=== PATIENT | female | born 1950 | race Caucasian/White ===

== ENCOUNTER 2016-08-17 10:47 | Inpatient (IN) | payer OTHER ==
[2016-07-27 09:19] VITALS: BMI 40.0
--- NOTE | 2016-07-27 10:08 | PAT Medication Instructions ---
Service Date Jul 27, 2016. Current Home Medication List Albuterol Hfa (Ventolin Hfa), 1-2 PUFFS INH Q6H PRN for Shortness of Breath Fluticasone Prop/Salmeterol (Advair Diskus 100/50 60 Dose), 1 PUFF INH BID Gabapentin (Neurontin), 300 MG PO HS Medication Instructions For Your Scheduled Surgery - Take the following medications the morning of surgery with a sip of water: Fluticasone Prop/Salmeterol (Advair Diskus 100/50 60 Dose), 1 PUFF INH BID Albuterol Hfa (Ventolin Hfa), 1-2 PUFFS INH Q6H PRN for Shortness of Breath ( bring with you to hospital on day of surgery) - Take the following medications as scheduled the night before surgery: Gabapentin (Neurontin), 300 MG PO HS Fluticasone Prop/Salmeterol (Advair Diskus 100/50 60 Dose), 1 PUFF INH BID Albuterol Hfa (Ventolin Hfa), 1-2 PUFFS INH Q6H PRN for Shortness of Breath If you have any questions please call us at [phone] or [phone] ( Gabriela) or [phone]
--- NOTE | 2016-07-27 10:45 | DIAGNOSTIC IMAGING REPORT ---
CHEST PREADMISSION(PA/LAT) CLINICAL HISTORY: PAT preoperative evaluation COMPARISON STUDY: No previous studies for comparison. FINDINGS: Findings of prior median sternotomy. No evidence for cardiac enlargement. Lungs are clear. Diaphragms smooth. IMPRESSION: No acute process. Electronically signed by: Armen Ivey M.D. 07/27/2016 10:44 AM Dictated Date/Time: 07/27/2016 10:43 AM
[2016-07-27 11:29] LABS: BASO % 0.2 %; BASO ABS # 0.01 K/uL (0-0.2); COMPLETE YES; EOS % 0.2 %; HEMATOCRIT 44.3 % (37-47); IG% 0.2 %; LYMPH % 31.4 %; LYMPH ABS # 2.05 K/uL (1.2-3.4); MEAN CELL VOLUME 92.9 fL (80-100); MEAN CORPUSCULAR HEMOGLOBIN 30.6 pg (25-34); MEAN PLATELET VOLUME 10.2 fL (7.4-10.4); MONO % 6.6 %; NEUT % 61.4 %; PLATELET COUNT 195 K/uL (130-400); RED BLOOD COUNT 4.77 M/uL (4.2-5.4); WHITE BLOOD COUNT 6.52 K/uL (4.8-10.8)
[2016-07-27 11:31] LABS: URINE APPEARANCE CLEAR (CLEAR); URINE BILIRUBIN NEG (NEG); URINE COLOR YELLOW; URINE NITRITE NEG (NEG); URINE SPECIFIC GRAVITY 1.022 (1.000-1.030); UROBILINOGEN NEG (NEG)
[2016-07-27 11:35] LABS: MANUAL MICROSCOPIC REQUIRED? NO; REVIEW REQ? NO
[2016-07-27 11:53] LABS: BUN/CREATININE RATIO 15.5 (10-20); CALCIUM 9.4 mg/dl (8.5-10.1); CREATININE 0.85 mg/dl (0.60-1.20); POTASSIUM 3.9 mmol/L (3.5-5.1)
--- NOTE | 2016-08-13 08:00 | HISTORY & PHYSICAL EXAMINATION ---
DATE OF ADMISSION: 08/17/2016 HISTORY OF PRESENT ILLNESS: The patient presents to our office with a complaint of back pain radiating into the right leg. She feels both of her legs are weak. Denies paresthesias or numbness. She has trialed epidural injections with Dr. Griffin and reported severe pain, no improvement of her symptoms. Denies bowel or bladder dysfunction. She reports her symptoms make it difficult for her to walk any distance. Prolonged sitting also reproduces her pain. She has trialed the anti-inflammatories without relief. She has trialed oral steroids which initially provided relief, but after they were finished, symptoms returned to baseline. MEDICAL HISTORY: Significant for arthritis, asthma, cancer. SURGICAL HISTORY: Significant for cholecystectomy, sternotomy, hiatal hernia repair. ALLERGIES: None listed. MEDICATIONS: Include Advair 100/50 b.i.d. SOCIAL HISTORY: The patient is , 4 children. Denies alcohol. Denies tobacco use. 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 FAMILY HISTORY: Noncontributory. REVIEW OF SYSTEMS: Significant for back and leg pain. PHYSICAL EXAMINATION: HEENT: Speech appropriate. CARDIOPULMONARY: No gross abnormalities. ABDOMEN: Soft, nontender. GENITOURINARY: Deferred. NEUROLOGIC: Cranial nerves II-XII grossly intact. MUSCULOSKELETAL: The patient moves slowly around the room favoring the right side. She has positive tension sign on the right. She has weakness of right dorsiflexion and plantarflexion of 4 to 4+/5. She has blunted sensation along the L4 and L5 distributions of the right foot. ASSESSMENT: Severe spinal stenosis L4-L5, grade 1 to grade 2 spondylolisthesis L5-S1, significant neural foraminal stenosis bilaterally L5-S1. PLAN: At this point in time, we have reviewed surgical intervention as she has trialed and failed conservative therapy. Surgical intervention would require lumbar decompression with instrumented fusion L4-L5 and L5-S1. Risks, benefits, pros, cons, and alternatives were outlined in detail. She would like to proceed with the above-mentioned surgical planning.
[~2016-08-17] VITALS: Ht 160 cm; Wt 103.2 kg
[2016-08-17] VITALS (9 sets, daily range): BP systolic 144–180; BP diastolic 76–97; PULSE 79–97; TEMP 36.4–36.6; O2SAT 94–97; Ht 160 cm; Wt 103.2 kg
--- NOTE | 2016-08-17 07:30 | History & Physical Bridge Note ---
H&P Re-Evaluation Bridge Note: I have examined the patient, reviewed the History & Physical and in the interval since the performance of the History & Physical I have noted the following changes of clinical significance: No changes noted
[~2016-08-17 10:47] MED LIST: ADVIN10/60 INH; CEFAZOLIN 2000 MG/60 ML D5W IV SCH; GABA-113 PO; LACTATED RINGER'S 1000ML 1,000 ML IV SCH; VNTHFA/IN INH
[2016-08-17] MEDS ORDERED: MIDAZOLAM HCL 1 MG/ML 2ML VIAL ONE (11:37)
[2016-08-17] MEDS ORDERED: FENTANYL CITRATE INJ 50 MCG/1 ML 2 ML VIAL ONE ×2 (11:37→12:49)
[2016-08-17] MEDS ORDERED: BUPIVACAINE/EPINEPHRINE 0.5% MPF 1:200,000 30 ML VIAL ONE (12:01)
[2016-08-17] MEDS ORDERED: BACITRACIN 50000 UNIT VIAL ONE (12:02)
[2016-08-17] MEDS ORDERED: SODIUM CHLORIDE 0.9% PF 50 ML VIAL ONE (12:02)
[2016-08-17] MEDS ORDERED: HYDROmorphone INJ 2 MG/ML SYR/VIAL ONE (12:49)
[2016-08-17] MEDS ORDERED: NEOSTIGMINE METHYLSULFATE 1 MG/ML 10ML VIAL ONE (13:09)
[2016-08-17] MEDS ORDERED: PROPOFOL IV EMULSION 10 MG/ML 20 ML VIAL IV ONE (13:09)
[2016-08-17] MEDS ORDERED: DEXAMETHASONE SOD INJ 4 MG/ML VIAL ONE (13:09)
[2016-08-17] MEDS ORDERED: ONDANSETRON INJ 2 MG/ML 2 ML VIAL ONE (13:09)
[2016-08-17] MEDS ORDERED: PHENYLEPHRINE 100MCG/ML 5ML SYR ONE (13:09)
[2016-08-17] MEDS ORDERED: GLYCOPYRROLATE INJ 0.2 MG/ML VIAL ONE (13:09)
[2016-08-17] MEDS ORDERED: LIDOCAINE HCL 2% 2 ML VIAL (20MG/ML) ONE (13:09)
[2016-08-17] MEDS ORDERED: ROCURONIUM BROMIDE 10 MG/ML 5 ML VIAL ONE (13:09)
[2016-08-17] MEDS ORDERED: ATROPINE SULFATE 0.1 MG/ML 5ML SYR IV PRN (13:45)
[2016-08-17] MEDS ORDERED: ONDANSETRON INJ 2 MG/ML 2 ML VIAL IV PRN ×2 (13:45→14:15)
[2016-08-17] MEDS ORDERED: FLOSEAL HEMOSTATIC MATRIX 10ML TOP ONE (14:11)
[2016-08-17] MEDS ORDERED: SODIUM CHLORIDE 0.9% 1000ML 1,000 ML IV SCH (14:12)
--- NOTE | 2016-08-17 14:12 | [facility] Post Operative Brief Note ---
Immediate Operative Summary Operative Date Aug 17, 2016. Pre-Operative Diagnosis Severe spinal stenosis L4-L5, grade 1 to grade 2 spondylolisthesis L5-S1, significant neural foraminal stenosis bilaterally L5-S1 Post-Operative Diagnosis Severe spinal stenosis L4-L5, grade 1 to grade 2 spondylolisthesis L5-S1, significant neural foraminal stenosis bilaterally L5-S1 Procedure(s) Performed L4-L5 Lumbar Laminectomy, Decompression, Pedicle Screw Fixation, Placement of Interbody Device, L4-L5 and L5-S1 Posterolateral Fusion, Bone Morphogenetic Protein, Application of Caitlyn Allograft Surgeon Dr. Ly Pottery Machine Operator Surgeon(s) LIZ Sanchez Estimated Blood Loss 100 Findings stenosis/spondy/hnp Specimens none per surgeon
[2016-08-17] MEDS ORDERED: ALBUTEROL HFA 8 GM INHALER INH PRN (14:15)
[2016-08-17] MEDS ORDERED: ACETAMINOPHEN IV 100 ML IV PRN (14:15)
[2016-08-17] MEDS ORDERED: SOD PHOSPHATE/SOD BIPHOSPHATE ENEMA 132 ML BTL PR PRN (14:15)
[2016-08-17] MEDS ORDERED: DO NOT ADMINISTER FLU VACCINE PRN ×3 (14:15)
[2016-08-17] MEDS ORDERED: LORAZEPAM 0.5 MG TAB PO PRN (14:15)
[2016-08-17] MEDS ORDERED: METOCLOPRAMIDE HCL INJ 5 MG/ML 2 ML VIAL IV PRN (14:15)
[2016-08-17] MEDS ORDERED: BISACODYL 10 MG SUPP PR PRN (14:15)
[2016-08-17] MEDS ORDERED: LORAZEPAM INJ 0.5 MG in SYRINGE 0 ML IV PRN (14:15)
[2016-08-17] MEDS ORDERED: ALUMINUM/MAGNESIUM SUSP 30 ML UDC PO PRN (14:15)
[2016-08-17] MEDS ORDERED: hydrOXYzine HCL 25 MG TAB PO PRN (14:15)
[2016-08-17] MEDS ORDERED: DO NOT ADMINISTER PNEUMOCOCCAL VACCINE PRN ×2 (14:15)
[2016-08-17] MEDS ORDERED: FAMOTIDINE 20 MG TAB PO PRN (14:15)
[2016-08-17] MEDS ORDERED: NALOXONE HCL 0.4 MG/1 ML VIAL/CARP IV PRN ×2 (14:15)
[2016-08-17] MEDS ORDERED: PROMETHAZINE HCL INJ 12.5 MG in SODIUM CHLORIDE 0.9% 50ML 50 ML IV PRN (14:15)
[2016-08-17] MEDS ORDERED: MAGNESIUM HYDROXIDE SUSP 30 ML UDC PO PRN (14:15)
--- NOTE | 2016-08-17 14:17 | DIAGNOSTIC IMAGING REPORT ---
INTRAOPERATIVE RADIOGRAPHS CLINICAL HISTORY: L4-S1 spinal fusion. Fluoroscopy time: 16 seconds. FINDINGS: 2 spot fluoroscopic views of the lumbar spine are presented. There are changes from discectomy at L4-L5 and L5-S1 with laminectomy and posterior fusion from L4 -S1. Interpedicular screws are present at all levels. The orthopedic hardware appears intact. IMPRESSION: Intraoperative images from L4 -S1 spinal fusion as above. Electronically signed by: Stanley Block M.D. 08/17/2016 2:15 PM Dictated Date/Time: 08/17/2016 2:14 PM
--- NOTE | 2016-08-17 14:31 | OPERATIVE REPORT ---
DATE OF OPERATION: 08/17/2016 PREOPERATIVE DIAGNOSES: Spinal stenosis, spondylolisthesis, herniated nucleus pulposus. POSTOPERATIVE DIAGNOSES: Same. PROCEDURE PERFORMED: 1. Lumbar decompression, medial facetectomy, and foraminotomy L3-4, L4-5, L5-S1. 2. Posterior spinal fusion L4-L5, L5-S1. 3. Placement posterior segmental instrumentation using Orthros rods and screws as well as a crosslink L4-L5, L5-S1. 4. Interbody fusion L4-L5 and L5-S1. 5. Placement of PEEK cage 12 x 22 mm at L4-L5 and 9 x 22 mm at L5-S1. 6. Placement of locally harvested morselized autograft posterior gutters. 7. Placement of Infuse collagen sponge combined with Mastergraft in the posterior gutters and Caitlyn bone grafting interbody space. SURGEON: Dr. Isma Ly. DELINQUENCY PREVENTION SOCIAL WORKER: Due to the complex nature of the procedure, the entire surgery was performed with the psych assistant of LIZ Sanchez. The assistant women's soccer coach, under direct supervision, was involved in the actual performance of all aspects of the surgical procedure including hemostasis, tissue retraction and incision, instrument management, patient positioning, and wound closure. ANESTHESIA: General. DISPOSITION: The patient awakened and taken to PACU in stable condition. HISTORY OF PATIENT'S PROBLEMS: This is a 65-year-old female that presents with above-mentioned diagnosis. After failing an extensive course of nonoperative care, elected to undergo the above-mentioned procedure. Risks, benefits, pros, cons, and alternatives were outlined in detail preoperatively. DESCRIPTION OF PROCEDURE: The patient was met with preoperatively, case discussed and all questions were addressed. At that point the patient was taken back to operative suite and after undergoing successful general intubation by the department of anesthesia was placed in prone position on Harsha table on top of the Denis frame. All bony prominences were well padded and the eyes were inspected to ensure there was no external pressure placed upon them. At this point, lumbar spine was prepped and draped in normal sterile fashion. Sharp dissection with the assistance of Bovie cautery performed down to and exposing the lamina and transverse processes of L4, L5 and the sacral ala. Obvious pars defect was appreciated. A complete laminectomy of L5, L4, and partial laminectomy of L3 was performed addressing severe lateral recess foraminal stenosis as well as a massive disk herniation L4-L5 on the right. After complete decompression, pedicle screws were then placed in L4, L5 and S1 levels bilaterally with the assistance of fluoroscopy and appropriate size levon provisionally placed. Through a transforaminal approach on the right, a complete diskectomy of L5-S1 was performed, endplates curetted to subcortical bleeding bone and a 9 x 22 mm PEEK cage filled with Caitlyn bone grafting tapped into position. I then proceeded to L4-L5 and again a complete diskectomy was performed through a transforaminal approach, endplates curetted to subcortical bleeding bone and a 12 x 22 mm PEEK cage filled with Caitlyn bone grafting tapped into position. The rods were then compressed, locked into final position bilaterally including a crosslink placed. A 7 flat CR drain inserted. Incision was closed with 1-0 Vicryl in the fascia, 2-0 Vicryl subcutaneously, 4-0 Monocryl for final skin closure. Steri-Strips and sterile dressing placed. The patient was awakened and taken to PACU in stable condition. I attest to the content of the Intraoperative Record and any orders documented therein. Any exceptio ns are noted below.
[2016-08-17] MEDS ORDERED: HYDROmorphone HCL 0.5MG/ML 50 ML CASSETTE ONE (14:38)
[2016-08-17] MEDS ORDERED: HYDROmorphone INJ 1 MG/ML SYR ONE (14:45)
[2016-08-17] MEDS: HYDROmorphone INJ 2 MG/ML SYR/VIAL IV PRN ×4 (14:50→15:05)
[2016-08-17] MEDS: LABETALOL HCL IV 5 MG/ML 20ML IV PRN (15:13)
[2016-08-17] MEDS ORDERED: HYDROmorphone INJ 1 MG/ML SYR IV PRN (15:45)
--- NOTE | 2016-08-17 15:50 | Anesthesiology Progress Note ---
Anesthesia Post Op Note Date & Time Aug 17, 2016 at 15:50 Vital Signs Pain Intensity: 2 Vital Signs Past 12 Hours Date Time Temp Pulse Resp B/P Pulse Ox O2 Delivery O2 Flow Rate FiO2 08/17/16 15:47 82 16 96 08/17/16 15:47 81 16 08/17/16 15:44 153/98 08/17/16 15:42 80 12 89 08/17/16 15:42 81 12 08/17/16 15:39 157/92 08/17/16 15:37 82 12 94 08/17/16 15:37 82 12 08/17/16 15:36 147/92 08/17/16 15:32 83 21 94 08/17/16 15:32 83 21 08/17/16 15:31 83 16 08/17/16 15:31 82 16 93 08/17/16 15:26 83 17 08/17/16 15:26 82 17 91 08/17/16 15:24 172/110 08/17/16 15:23 164/99 08/17/16 15:21 78 16 94 08/17/16 15:21 78 16 08/17/16 15:20 164/99 08/17/16 15:18 36.1 83 16 173/98 94 Nasal Cannula 4 08/17/16 15:16 80 28 93 08/17/16 15:16 79 28 08/17/16 15:14 164/97 08/17/16 15:11 87 12 94 08/17/16 15:11 88 12 08/17/16 15:09 175/100 08/17/16 15:06 89 14 90 08/17/16 15:06 89 14 08/17/16 15:04 161/104 08/17/16 15:01 89 15 08/17/16 15:01 89 15 94 08/17/16 14:59 160/93 08/17/16 14:56 88 19 96 08/17/16 14:56 89 19 08/17/16 14:54 164/104 08/17/16 14:51 89 17 97 08/17/16 14:51 89 17 08/17/16 14:50 88 14 08/17/16 14:50 88 14 97 08/17/16 14:49 176/111 08/17/16 14:45 89 17 98 08/17/16 14:45 89 17 08/17/16 14:44 176/103 08/17/16 14:40 90 22 99 08/17/16 14:40 90 22 08/17/16 14:39 174/101 08/17/16 14:38 166/107 08/17/16 14:36 169/100 08/17/16 14:35 88 18 172/107 98 08/17/16 14:35 87 18 08/17/16 14:35 36.1 89 18 169/100 98 Mask 10 08/17/16 11:18 36.6 88 20 180/90 96 Room Air Notes Mental Status: alert / awake / arousable, participated in evaluation Pt Amnestic to Procedure: Yes Nausea / Vomiting: adequately controlled Pain: adequately controlled Airway Patency, RR, SpO2: stable & adequate BP & HR: stable & adequate Hydration State: stable & adequate Anesthetic Complications: no major complications apparent BP managed in PACU with 10mg IV labetalol to keep DBP<100.
[2016-08-17] MEDS: HYDROmorphone HCL 0.5MG/ML 50 ML CASSETTE IV PRN ×2 (16:00→23:15)
[2016-08-17] MEDS: LACTATED RINGER'S 1000ML 1,000 ML IV SCH ×2 (16:50→20:31)
[2016-08-17] MEDS: CEFAZOLIN IV 2,000 MG in DEXTROSE 5% 50ML 50 ML IV SCH (20:29)
[2016-08-17] MEDS: DOCUSATE SODIUM/SENNA 50/8.6MG TAB PO SCH (21:00)
[2016-08-17] MEDS: FLUTICASONE/SALMETEROL 100/50 (ADVAIR) 14 PUFF/1 INHALER INH SCH (21:18)
[2016-08-17] MEDS: DEXAMETHASONE INJ 6 MG in SYRINGE 0 ML IV SCH (21:19)
[2016-08-17] MEDS: GABAPENTIN 300 MG CAP PO SCH (21:20)
[2016-08-18 03:09] VITALS: BP 113/69; PULSE 105; TEMP 36.7; O2SAT 93
[2016-08-18] MEDS: LACTATED RINGER'S 1000ML 1,000 ML IV SCH (03:12)
[2016-08-18] MEDS: CEFAZOLIN IV 2,000 MG in DEXTROSE 5% 50ML 50 ML IV SCH (03:12)
[2016-08-18] MEDS ORDERED: HYDROmorphone INJ 0.5 MG/0.5 ML SYR IV PRN (06:00)
[2016-08-18] MEDS ORDERED: HYDROmorphone INJ 1 MG/ML SYR IV PRN (06:00)
[2016-08-18] MEDS ORDERED: OXYCODONE HCL IR 5 MG TAB (IMMEDIATE RELEASE) PO PRN (06:00)
[2016-08-18] MEDS ORDERED: DC PCA ONE (06:00)
[2016-08-18] MEDS: DEXAMETHASONE INJ 6 MG in SYRINGE 0 ML IV SCH ×2 (06:30→13:34)
--- NOTE | 2016-08-18 06:46 | Clinical Documentation Query ---
ALBERT Garnica : CLINICAL DOCUMENTATION QUERY Patient is a 65 year old female who underwent L4-L5 Lumbar Laminectomy, Decompression, Pedicle Screw Fixation, Placement of Interbody Device, L4-L5 and L5-S1 Posterolateral Fusion, Bone Morphogenetic Protein, Application of Caitlyn Allograft. BMI noted per EMR to be 40.3 Kg/m^2. Obesity is always a clinically significant risk factor for morbidity and mortality in the postoperative patient. In order to capture the severity of illness and risk of mortality of the noted BMI, the associated medical condition must be explicitly documented by the provider. In your clinical opinion is this patient being managed for/have a personal history of: ( ) Obesity; BMI 40.3 Kg/m^2 ( ) Other explanation of clinical findings (Please Explain) ( ) Unable to determine (Please Define) ( ) Need to Discuss ( ) Not Agree The medical record reflects the following clinical findings, treatment, and risk factors. Clinical Indicators: As above Treatment: n/a Risk Factors: age, energy intake > energy expenditure, OA and asthma, possibly limiting activity Clarification - BMI ReportingCoding Clinic [id number], [id number]:There has been some confusion as to whether nursing staff documentation is acceptable for assigning BMI. Since hospitals are allowed to code the BMI based on the fish liver sorter's documentation, it would seem reasonable to assign the BMI based on the nurse's documentation as well. Can coders use nursing documentation to assign the BMI? Answer:Yes, the BMI can be assigned based on medical record documentation from clinicians, including nurses and dieticians who are not the patient's provider. As stated in the Official Guidelines for Coding and Reporting, BMI code assignment may be based on medical record documentation from clinicians who are not the patient's provider, since this information is typically documented by other clinicians involved in the care of the patient. Dieticians were only mentioned as an example of a clinician that might document BMI information. However, the associated diagnosis (such as overweight, obesity, or underweight) must be documented by the provider. Please clarify and document your clinical opinion in the progress notes and discharge summary. Terms such as "probable", "suspected", "likely", "questionable", "possible", or "still to be ruled out" are acceptable. IF IN AGREEMENT, YOU MUST DOCUMENT ABOVE DIAGNOSTIC STATEMENT IN DAILY PROGRESS NOTES AND DISCHARGE SUMMARY. This document is not part of the patient's record. Thank You, Rashard Velazquez RN [phone]
[2016-08-18 06:57] VITALS: BP 137/81; PULSE 107; TEMP 36.7; O2SAT 91
[2016-08-18 07:13] LABS: BASO % 0.1 %; BASO ABS # 0.01 K/uL (0-0.2); COMPLETE YES; HEMATOCRIT 38.2 % (37-47); IG% 0.3 %; LYMPH % 7.7 %; LYMPH ABS # 1.12 K/uL (1.2-3.4); MEAN CELL VOLUME 88.8 fL (80-100); MEAN CORPUSCULAR HEMOGLOBIN 30.2 pg (25-34); MEAN PLATELET VOLUME 9.6 fL (7.4-10.4); MONO % 3.4 %; NEUT % 88.5 %; PLATELET COUNT 189 K/uL (130-400); WHITE BLOOD COUNT 14.62 K/uL (4.8-10.8)
[2016-08-18] MEDS ORDERED: NURSING VERBAL MED ORDER ONE (07:15)
[2016-08-18 07:45] LABS: BUN/CREATININE RATIO 14.4 (10-20); CALCIUM 9.1 mg/dl (8.5-10.1); CREATININE 0.75 mg/dl (0.60-1.20); POTASSIUM 3.7 mmol/L (3.5-5.1)
[2016-08-18] MEDS ORDERED: RXC5 PO (08:01)
--- NOTE | 2016-08-18 08:02 | Discharge Instructions ---
Discharge Instructions Admission Reason for Admission: Lumbar Spinal Stenosis Discharge Discharge Diagnosis / Problem: stenosis Discharge Goals Goal(s): Improve function Activity Recommendations Activity Limitations: per Instructions/Follow-up section . Instructions / Follow-Up Instructions / Follow-Up ACTIVITY RECOMMENDATIONS: SELF CARE INSTRUCTIONS AFTER THORACIC/LUMBAR FUSIONS 1. You may walk to your tolerance. It is good exercise for your legs and back. Expect some back and intermittent leg aches and pains. 2. You may perform "counter-top" level activities (make a sandwich, juanpablo with a project, etc.). 3. No bending or lifting of more than 10 pounds or back twisting of any nature (roll like a log when turning in bed). 4. You may ride in a car for 20-30 minutes at a time. No driving until after your first visit with your doctor. 5. Frequent changes of position and restricting sitting to 30 minutes at a time will help limit the amount of back spasms and stiffness you may experience. 6. You may discontinue the use of ambulatory aids (cane, crutches, etc.) once your strength and confidence allow. 7. You may pattern perforating machine operator the shower and let water strike your incision when you arrive home at least once daily. Do not take a tub bath, sit in a hot tub or go into a swimming pool until after your first recheck in the office. SPECIAL CARE INSTRUCTIONS: VERY IMPORTANT TO READ AND REVIEW A. Your surgical incision has been closed with a cosmetic suture under the skin that will dissolve in about 6 weeks. In 14 days, you can use a pair of clean scissors and cut the suture that is left outside of the skin at the ends of your incision. 1. The small skin tapes can be removed 7 days after surgery if they have not fallen off by that point. 2. You may keep the wound open to air as much as possible to promote healing after post-op day number 5 unless told otherwise by your doctor. 3. If you think the wound looks like it is becoming infected (redness or worsening drainage) and/or you are experiencing fever, chill or worsening back pain and muscle spasms, contact the office so that we may evaluate you as soon as possible. B. Complications are uncommon, but please contact us if you have any signs or symptoms of: 1. wound infection (fever higher than 102.5 degrees F, redness, separation of wound, drainage, or increasing pain from the incision) 2. blood clots in legs (pain, swelling, redness and warmth in legs) 3. urinary tract infection (fever higher than 102.5 degrees F, burning upon urination or increased frequency of urination) 4. nerve problems (inability to walk on your toes or heels, numbness, loss of bowel or bladder control) 5. any other symptoms that concern you C. Please call the office at if you have any concerns or questions about your operation or recovery. D. No smoking! Smoking drastically decreases the chance of a solid fusion. E. Do not take any anti-inflammatory medications (Indocin, Advil, Motrin, Aspirin, Naprosyn, etc.) as these may inhibit the chance of a solid fusion. Tylenol is okay to take for pain. MANAGING PAIN AFTER SPINAL SURGERY 1. Narcotic medication is intended for short-term use and will be provided for surgical pain. Surgical pain usually lasts for a period of 4-6 weeks. Narcotic medication includes Percocet, Vicodin, Darvocet, Tylenol #3 or Lortab. 2. Longer-term pain is more appropriately treated with non-narcotic medication such as Tylenol ES. 3. Muscle spasm is not appropriately treated with narcotics. Muscle relaxers such as Soma, Flexeril or Skelaxin can be used along with Tylenol ES. 4. Remember that we all live with some "aches and pains". This is not unusual or uncommon after an injury or as we get older. a. Back pain is expected and may include muscle spasms for 4 to 6 weeks after surgery. The pain should gradually improve. If the pain worsens for no apparent reason, please contact the office. b. Intermittent leg pain may also be experienced and should not be concerned about unless it worsens for no apparent reason. If so, please contact the office. 5. We will provide appropriate medication within the normal guidelines of their prescribed use. We will also be very cautious and aware of potential abuse and extended duration of patients' medication needs. a. Pain medications are for your comfort and to assist with sleep and rest so that the tissue can heal. They are not provided in order to return to normal activity and should not be used through the day. To do so or worsening pain at night can result from ongoing tissue damage and development of tolerance to the prescribed medicine. 6. Please allow 2-3 days to process refills. Prescriptions will not be mailed but must be picked up at the office. FOLLOW UP VISIT: Keep your scheduled follow-up appointment. Any questions, please call the office at . Current Hospital Diet Patient's current hospital diet: Regular Diet Discharge Diet Recommended Diet: Regular Diet Procedures Procedures Performed: L4-L5 Lumbar Laminectomy, Decompression, Pedicle Screw Fixation, Placement of Interbody Device, L4-L5 and L5-S1 Posterolateral Fusion, Bone Morphogenetic Protein, Application of Caitlyn Allograft Pending Studies Studies pending at discharge: no Medical Emergencies . Who to Call and When: Medical Emergencies: If at any time you feel your situation is an emergency, please call 911 immediately. . Non-Emergent Contact Non-Emergency issues call your: Primary Care Provider . "Provider Documentation" section prepared by Isma Ly. VTE Core Measure Inpt VTE Proph given/why not?: Kusum Garcia, SCD's
--- NOTE | 2016-08-18 08:13 | PROGRESS NOTE ---
DATE: 08/18/2016 Postop day 1. Back pain controlled. Leg pain markedly improved. Vital signs stable. T-max 36.7. RC drained 80 mL this shift. Hematocrit this a.m. is 30.2. PHYSICAL EXAMINATION: The patient is in chair at bedside. Has excellent strength to testing and is comfortable. ASSESSMENT: Status post lumbar decompression and fusion. PLAN: At this time, initiate physical therapy, advance her bowel regimen, anticipate home in the next few days.
[2016-08-18] MEDS: FLUTICASONE/SALMETEROL 100/50 (ADVAIR) 14 PUFF/1 INHALER INH SCH ×2 (08:36→20:47)
[2016-08-18] MEDS: ACETAMINOPHEN 500 MG TAB PO PRN ×2 (08:39→20:51)
[2016-08-18 12:02] VITALS: BP 130/75; PULSE 102; TEMP 33.6; O2SAT 93
[2016-08-18 15:05] VITALS: BP 158/84; PULSE 94; TEMP 36.8; O2SAT 90
--- NOTE | 2016-08-18 16:18 | Anesthesiology Progress Note ---
Anesthesia Post Op Note Date & Time Aug 18, 2016 at 16:17 Vital Signs Vital Signs Past 12 Hours Date Time Temp Pulse Resp B/P Pulse Ox O2 Delivery O2 Flow Rate FiO2 08/18/16 15:05 36.8 94 20 158/84 90 Room Air 08/18/16 12:02 33.6 102 16 130/75 93 Room Air 08/18/16 09:34 Room Air 08/18/16 07:40 Room Air 08/18/16 06:57 36.7 107 16 137/81 91 Room Air Notes Mental Status: alert / awake / arousable, participated in evaluation Pt Amnestic to Procedure: Yes Nausea / Vomiting: adequately controlled Pain: adequately controlled Airway Patency, RR, SpO2: stable & adequate BP & HR: stable & adequate Hydration State: stable & adequate Anesthetic Complications: no major complications apparent
[2016-08-18] MEDS: DOCUSATE SODIUM/SENNA 50/8.6MG TAB PO SCH (20:47)
[2016-08-18] MEDS: GABAPENTIN 300 MG CAP PO SCH (21:19)
[2016-08-18 23:00] VITALS: BP 149/68; PULSE 95; TEMP 36.5; O2SAT 97
[2016-08-19] MEDS: POLYETHYLENE (MIRALAX) 17 GM PACK PO SCH ×2 (05:50→10:40)
[2016-08-19] MEDS ORDERED: NURSING DECISION MEDICATION ORDER SCH (06:00)
[2016-08-19 06:55] VITALS: BP 158/93; PULSE 93; TEMP 37; O2SAT 93
[2016-08-19 07:52] VITALS: O2SAT 97
[2016-08-19 07:53] VITALS: BP 132/84; PULSE 93; TEMP 36.8; O2SAT 97
[2016-08-19] MEDS: FLUTICASONE/SALMETEROL 100/50 (ADVAIR) 14 PUFF/1 INHALER INH SCH (07:55)
[2016-08-19] MEDS: ACETAMINOPHEN 500 MG TAB PO PRN (07:55)
[2016-08-19] MEDS ORDERED: NURSING VERBAL MED ORDER ONE (08:00)
[2016-08-19 11:40] VITALS: BP 136/90; PULSE 86; TEMP 36.7; O2SAT 99
[2016-08-19 14:37] VITALS: BP 136/90; PULSE 86; TEMP 36.7; O2SAT 99
--- NOTE | 2016-08-19 17:21 | DISCHARGE SUMMARY ---
PRINCIPAL DIAGNOSIS: Spinal stenosis. HOSPITAL COURSE FOLLOWS: On August 17, the patient underwent lumbar decompression and fusion, tolerated this well and taken to the orthopedic floor postoperatively. Postop day #1, leg pain improved, ambulating well, progressed to postop day #2. RC drain decreased appropriately, subsequently discharged home. Discharge orders and instructions found on the chart for further review.
== END 2016-08-19 15:54 | disposition home or self-care (01) | DRG 460 ==
LOC: ENRESERVTM → ENRESERVDT → C.ACU 10:47 → C.3E 12:00
PROVIDERS: ADMIT Orthopaedic Surgery Orthopaedic Surgery of the Spine; ATTEND Orthopaedic Surgery Orthopaedic Surgery of the Spine
PROC: 0SG30AJ Fusion of Lumbosacral Joint with Interbody Fusion Device, Posterior Approach, Anterior Column, Open Approach (ICD-10-PCS; principal; 2016-08-17 12:45)
PROC: 0ST20ZZ Resection of Lumbar Vertebral Disc, Open Approach (ICD-10-PCS; principal; 2016-08-17 12:45)
PROC: 01NB0ZZ Release Lumbar Nerve, Open Approach (ICD-10-PCS; principal; 2016-08-17 12:45)
PROC: 0SG3071 Fusion of Lumbosacral Joint with Autologous Tissue Substitute, Posterior Approach, Posterior Column, Open Approach (ICD-10-PCS; principal; 2016-08-17 12:45)
PROC: 0SG0071 Fusion of Lumbar Vertebral Joint with Autologous Tissue Substitute, Posterior Approach, Posterior Column, Open Approach (ICD-10-PCS; principal; 2016-08-17 12:45)
PROC: 3E0U0GB Introduction of Recombinant Bone Morphogenetic Protein into Joints, Open Approach (ICD-10-PCS; principal; 2016-08-17 12:45)
PROC: 0SG00AJ Fusion of Lumbar Vertebral Joint with Interbody Fusion Device, Posterior Approach, Anterior Column, Open Approach (ICD-10-PCS; principal; 2016-08-17 12:45)
PROC: 0ST40ZZ Resection of Lumbosacral Disc, Open Approach (ICD-10-PCS; principal; 2016-08-17 12:45)
DX: M48.06 Spinal stenosis, lumbar region (principal); Z68.41 Body mass index [BMI] 40.0-44.9, adult; M48.07 Spinal stenosis, lumbosacral region; M43.17 Spondylolisthesis, lumbosacral region; J45.909 Unspecified asthma, uncomplicated; G62.9 Polyneuropathy, unspecified; E66.01 Morbid (severe) obesity due to excess calories; Z79.51 Long term (current) use of inhaled steroids; Z79.899 Other long term (current) drug therapy